=== PATIENT | male | born 2000 | race Caucasian/White ===

== ENCOUNTER 2023-01-16 12:37 | Outpatient (CLI) | payer BC, SELFPAY ==
--- NOTE | ~2023-01-16 | MR_ITS ---
EXAMINATION: MR shoulder RT w con DATE: 01/16/2023 15:15 INDICATION: Right shoulder instability with recurrent dislocations TECHNIQUE: Magnetic resonance imaging (MRI) of the right shoulder was performed following intra-mary cular gadolinium contrast injection and without intravenous contrast. Details of the glenohumeral nhung nt injection have been dictated separately. Sequences included axial T2-weighted FS FSE, axial T1-we ighted FS FSE, coronal oblique T1-weighted FS FSE, coronal oblique T2-weighted FSE, sagittal T2-weigh tri FS FSE, sagittal T1-weighted FSE, and ABER (abduction external rotation) T1-weighted FS FSE. COMPARISON: Right shoulder radiographs dated 01/08/2023 FINDINGS: Coracoacromial arch: The acromion undersurface is curved in morphology (type II). The coracoacromial ligament is normal. A cromioclavicular joint is normal. Rotator cuff: The supraspinatus, infraspinatus and teres minor are normal. The subscapularis is normal. Normal rota tor cuff muscle bulk and signal. Biceps tendon, glenoid labrum and glenohumeral cartilage: Long head of the biceps tendon is normal. There is a normal anterosuperior sublabral foramen and a sm ooth medially curving sublabral sulcus at the anterosuperior glenoid. There is a superior, anterior t o posterior tear of the glenoid labrum (SLAP tear) extending laterally into the substance of the 12:0 0-12:30 position of the superior glenoid labrum. There is an additional labral tear extending inferio rly from the anterosuperior sublabral foramen to the 6:30 position of the anteroinferior glenoid. The middle and anterior and posterior inferior glenoid humeral ligaments all appear intact although the capsule at the axillary and inferior aspect of the posterior recess are patulous. Frayed appearing li gament fibers anterior to the long head biceps tendon at the rotator cuff interval consistent with at least high-grade partial if not complete tear of the superior glenohumeral ligament. Glenohumeral ca rtilage is normal. Bones and other: Chronic Hill-Sachs fracture trough without surrounding edema to suggest recent injury at the posteros uperior aspect of the humeral head consistent with chronic anterior glenohumeral dislocation. Normal marrow signal with no edema, recent fracture or pathologic marrow replacing process. Small amount of fluid in the subacromial/subdeltoid bursa consistent with mild bursitis. IMPRESSION: 1. Chronic Hill-Sachs fracture trough at the posterosuperior humeral head and tear at the anteroinfer ior glenoid labrum consistent with sequela of chronic anterior glenohumeral dislocation. 2. Separate small SLAP tear at the superior glenoid labrum. 3. High-grade partial if not complete tear of the superior glenohumeral ligament. Reviewed, dictated and finalized at location B. IMPRESSION: 1. Chronic Hill-Sachs fracture trough at the posterosuperior humeral head and t ear at the anteroinferior glenoid labrum consistent with sequela of chronic ant erior glenohumeral dislocation. 2. Separate small SLAP tear at the superior glenoid labrum. 3. High-grade partial if not complete tear of the superior glenohumeral ligamen t.
--- NOTE | ~2023-01-16 | XR_ITS ---
EXAMINATION: XR fl inj shoulder RT - MR/CT DATE: 01/16/2023 13:31 INDICATION: Instability of the right shoulder TECHNIQUE: A time-out was performed to verify the patient's name, date of , and procedure to b e performed. The procedure including the risks, benefits, and alternatives was discussed with the pat ient. Risks discussed included bleeding and infection. The patient understood the risks and agreed to proceed. The skin overlying the rotator cuff interval of the right glenohumeral joint was prepped a nd draped in usual sterile fashion. Anesthetic was administered with 1% lidocaine subcutaneously. A 22 G needle was advanced under fluoroscopic guidance into the joint. Injection of 1 mL of Omnipaque 350 confirmed intra-articular position of the needle. Subsequently, injectate consisting of 12 mL o f 2:1:1 mixture of sterile saline:Omnipaque 350:1% lidocaine mixed 200:1 with 529 mg/mL Multihance ga dolinium contrast was injected with intra-articular administration confirmed with intermittent fluoro scopy. The needle was removed and the entry site was cleaned and dressed. There were no immediate co mplications. Fluoroscopy exposure time was 0.3 minutes. The total number of images was 223. FINDINGS: Real-time fluoroscopy demonstrates the needle in the right glenohumeral joint. Hill-Sachs f racture trough identified at the posterosuperior humeral head consistent with reported history of christa or anterior glenohumeral dislocation. IMPRESSION: 1. Successful right glenohumeral joint injection of dilute gadolinium contrast mixture for subsequent MRI arthrogram which will be dictated separately. 2. Hill-Sachs fracture trough consistent with prior anterior glenohumeral dislocation. Reviewed, dictated and finalized at location B. IMPRESSION: 1. Successful right glenohumeral joint injection of dilute gadolinium contrast mixture for subsequent MRI arthrogram which will be dictated separately. 2. Hill-Sachs fracture trough consistent with prior anterior glenohumeral dislo cation.
== END 2023-01-16 12:38 ==
PROVIDERS: PCP Orthopaedic Surgery; Visit Provider Orthopaedic Surgery
DX: M25.311 Other instability, right shoulder (principal); S43.431A Superior glenoid labrum lesion of right shoulder, initial encounter
CPT/HCPCS: 23350; 73222; 77002; A9577; Q9967